=== PATIENT | male | born 2000 | race Asian ===

== ENCOUNTER 2023-03-25 12:36 | Emergency (ER) | payer OTHER ==
[~2023-03-25] VITALS: Ht 172.7 cm; Wt 86.4 kg
[2023-03-25] MEDS ORDERED: IBUP-1554 PO (15:49)
[2023-03-25 16:06] VITALS: BP 134/78
== END 2023-03-25 16:08 | disposition home or self-care (01) ==
LOC: EMS 12:38
DX: S93.601A Unspecified sprain of right foot, initial encounter (principal); X58.XXXA Exposure to other specified factors, initial encounter; Y93.89 Activity, other specified; Y92.89 Other specified places as the place of occurrence of the external cause; Y99.8 Other external cause status
CPT/HCPCS: 99284; 73610-TC; 73650-TC; Z7502